=== PATIENT | female | born 1930 | race Caucasian/White ===

== ENCOUNTER 2018-04-24 09:45 | Inpatient (IN) ==
[2018-04-24] MEDS ORDERED: Naloxone 0.4 MG/ML INJ IVP PRN (18:45)
--- NOTE | 2018-04-24 20:53 | Internal Med History&Physical ---
Date of Encounter: 04/24/18 Time of Encounter: 11:00 Internal Medicine - H&P: HPI Chief complaint: Epigastric pain Admitted From: Home History of present illness: Patient is a 87-year-old female with past medical history significant for hypertension and hyperlipidemia who presents due to epigastric pain and nausea/vomiting. Patient is a very poor historian but daughter is present at the bedside who reports patient has had recent nausea and abdominal discomfort. She was brought into the [facility] for further evaluation. In the ER patient was noted to have elevated troponin of 0.14 and was therefore transferred to [facility] for ACS rule out. Past Med Surg Social Fam HX - Past Medical History Medical history: hyperlipidemia, hypertension Psychiatric history: no psych history - Past Surgical History Surgical History: hysterectomy, other Additional surgical history: REMOVAL GANGLION CYST - Social History Smoking Status: Never smoker Smokeless Tobacco Status: No Alcohol use: none Drug use: none - Additional Family History Additional family history: mom-CAD Internal Medicine - H&P: Meds Aspirin 325 mg PO DAILY 06/18/17 [History] Enalapril Maleate [Vasotec] 20 mg PO DAILY 06/18/17 [History] Metoprolol [Lopressor] 50 mg PO BID 06/18/17 [History] Multivit-Min/Iron/Folic/Lutein [Centrum Silver Women Tablet] 1 each PO DAILY 06/18/17 [History] Simvastatin [Zocor] 20 mg PO HS 06/18/17 [History] cloNIDine HCl [CloNIDine HCl] 2 tab PO DAILY 06/18/17 [History] 3 Allergy/AdvReac Type Severity Reaction Status Date / Time No Known Allergies Allergy Verified 04/24/18 07:25 All Systems PM: A 10-system review of systems was performed and is negative for pertinent findings except as documented above in the HPI. - Constitutional Vitals: Temp Pulse Resp BP Pulse Ox 98.7 F 60 18 110/57 92 04/24/18 20:09 04/24/18 20:09 04/24/18 20:09 04/24/18 20:09 04/24/18 20:09 General appearance: Present: A&O X 3 Exam: As above - Head Head exam: Present: normocephalic - Eye Eye exam: Present: normal appearance - ENT ENT exam: Present: mucous membranes moist - Respiratory Respiratory exam: Present: CTAB. Absent: accessory muscle use, rales, rhonchi, wheezes - Cardiovascular Cardiovascular exam: Present: RRR, +S1, +S2. Absent: diastolic murmur, gallop, rubs, systolic murmur - GI/Abdominal GI/Abdominal exam: Present: normal bowel sounds, soft, no peritoneal signs. Absent: distended, tenderness - Extremities Exam Extremities exam: Absent: pedal edema - Neurological Exam Neurological exam: Present: oriented X3 - Psychiatric Psychiatric exam: Present: normal mood - Skin Skin exam: Present: normal color Internal Med - H&P Results - Labs CBC & Chem 7: 04/25/18 03:46 04/25/18 03:46 Labs: Cardiac Enzymes 04/24/18 Range/Units 14:02 Troponin I 0.18 H* (< 0.04) ng/mL - Assessment and plan (1) Elevated troponin I level Current Visit: No Status: Acute Assessment and plan: Patient with elevated troponin of 0.14 and repeat 0.18 Echocardiogram pending Will trend serial troponins and monitor on telemetry (2) Epigastric pain Current Visit: No Status: Acute Assessment and plan: Patient presented of abdominal discomfort Abdominal CT without any acute findings Will continue to monitor (3) HTN (hypertension), benign Current Visit: Yes Status: Acute Assessment and plan: Continue home dose of metoprolol and lisinopril addition to clonidine - Time Spent With Patient Total time spent is greater than 50% in coordination of care (as documented) at patient's floor/unit and/or counseling patient:
--- NOTE | 2018-04-25 00:36 | Event Note ---
Date of Encounter: 04/24/18 Time of Encounter: 22:30 Alerted by patient's nurse Natalie that patient's troponin was now 0.14. Initial troponin was 0.18. Patient admitted for ACS rule out due to elevated troponin but also admitted with nausea, vomiting, and abdominal pain. History of HLD and HTN. Patient reporting slight pressure in chest but denies SOB. EKG shows sinus arrhythmia with minimal ST depression in lateral leads and borderline ST elevation in anterior leads. Prolonged QT interval. No cardiac history and [facility] medical records. Echocardiogram ordered by Dr. Lai. Cardiology consult ordered but not confirmed due to lateness of the evening. A.m. team to follow-up and confirm Cardiology consult for this patient. Nurse instructed to monitor patient closely overnight and alerted me immediately if any adverse changes.
[2018-04-25 04:22] LABS: Basophils % 0.2 %; Eosinophils % 0.2 %; Hematocrit 36.2 % (35.3-44.9); Hemoglobin 11.8 g/dL (11.5-15.4); Immature Granulocytes % 0.2 % (0-4); Lymphocytes # 1.1 K/mcL (0.6-4.6); Lymphocytes % 12.8 %; Mean Corpuscular HGB Conc 32.6 g/dL (31.6-35.5); Mean Corpuscular Hemoglobin 29.4 pg (28.0-33.3); Mean Corpuscular Volume 90.3 fL (83.0-100.0); Mean Platelet Volume 10.6 fL (9.4-12.4); Monocytes # 0.7 K/mcL (0.0-1.3); Monocytes % 7.9 %; Neutrophils # 6.6 K/mcL (1.6-8.9); Platelet Count 249 K/mcL (140-400); Red Blood Count 4.01 M/mcL (3.82-4.97); Red Cell Distribution Width 12.5 % (11.5-14.5); Segmented Neutrophils % 78.7 %
[2018-04-25 04:27] LABS: Calcium 9.3 mg/dL (8.6-10.3); Potassium 3.4 mEq/L (3.5-5.1)
[2018-04-25] MEDS: cloNIDine HCl 0.1 MG TABLET PO SCH (10:19)
[2018-04-25] MEDS: Aspirin 325 MG TABLET PO SCH (10:19)
[2018-04-25] MEDS: Lisinopril 20 MG TABLET PO SCH (10:19)
--- NOTE | 2018-04-25 12:41 | Internal Med Progress Note ---
Hospitalist Progress Note - Encounter Date of Encounter: 04/25/18 Time of Encounter: 12:39 - Subjective Interval History: Patient seen and examined at bedside. Patient reports that she continues to feel nauseous but overall feels slightly better than she did yesterday evening. She denies any vomiting since admission. She denies chest pain, shortness of breath. - Exam Vitals: Temp Pulse Resp BP Pulse Ox 98.4 F 58 16 137/67 92 04/25/18 12:35 04/25/18 12:35 04/25/18 12:35 04/25/18 12:35 04/25/18 12:35 Exam: Gen.: Alert and oriented 3, appears mildly uncomfortable Heart: Regular rate and rhythm, no murmurs, rubs, gallops Lungs: Clear to auscultation bilaterally, no rales, rhonchi, wheezes Abdomen: Soft, nontender, nondistended. Normoactive bowel sounds. - Assessment and Plan (1) Hypertensive urgency Current Visit: Yes Status: Acute Assessment and Plan: Blood pressure significantly elevated at 215 systolic on presentation. Likely cause of patient's symptoms. Blood pressure has been improving, down to 150s systolic. Home medication restarted. Continue to monitor closely. (2) Nausea and vomiting Current Visit: Yes Status: Acute Assessment and Plan: Patient has persistent nausea however it is generally improved. Added Phenergan for symptomatic relief. CT of the abdomen and pelvis on presentation showed no acute findings. Possibly related to significant hypertension as the patient had a systolic blood pressure greater than 215 on presentation. Appears to be improving as blood pressure improved. (3) Elevated troponin I level Current Visit: Yes Status: Acute Assessment and Plan: Troponin 0.18 on presentation, has trended down to 0.10. Chest pain-free. Likely demand ischemia in the setting of hypertension however patient was noted to have EKG changes with right bundle branch block that she did not have on presentation. Discussed with cardiology. Do not feel like this was ACS however they did recommend echocardiogram and I have asked them to see her in consultation. (4) HTN (hypertension), benign Current Visit: Yes Status: Acute DVT Prophylaxis: EPCDs - Time Spent with Patient Total time spent is greater than 50% in coordination of care (as documented) at patient's floor/unit and/or counseling patient: Internal Medicine: Result - Labs CBC & Chem 7: 04/25/18 03:46 04/25/18 03:46 Labs: Short CBC 04/25/18 Range/Units 03:46 WBC 8.4 (4.3-11.1) K/mcL Hgb 11.8 D (11.5-15.4) g/dL Hct 36.2 (35.3-44.9) % Plt Count 249 (140-400) K/mcL Neutrophils # 6.6 (1.6-8.9) K/mcL BMP 04/25/18 03:46 Sodium 137 Potassium 3.4 L Chloride 99 Carbon Dioxide 27 BUN 37 H Creatinine 1.15 Glucose 104 Calcium 9.3 Cardiac Enzymes 04/24/18 04/24/18 04/25/18 Range/Units 14:02 21:43 03:46 Troponin I 0.18 H* 0.14 H* 0.12 H* (< 0.04) ng/mL 04/25/18 Range/Units 11:57 Troponin I 0.10 H* (< 0.04) ng/mL Consult Discharge Plan - Plan Referrals: Celso Hopper, DO [Primary Care Provider] - (2) Nausea and vomiting Qualifiers: Vomiting type: unspecified Vomiting Intractability: non-intractable Qualif ied Code(s): R11.2 - Nausea with vomiting, unspecified
[2018-04-26] MEDS ORDERED: *HR* Morphine 2 MG/ML SYRINGE IVP PRN (02:04)
--- NOTE | 2018-04-26 02:47 | Event Note ---
Date of Encounter: 04/26/18 Time of Encounter: 00:14 Alerted by pts. nurse MOUNA oPnd that the pt. was not feeling well. Pt. was admitted for HTN crisis, N/V, and elevated troponin. BP was 196/84 on manual check. No PRN medications ordered. 10 mg hydralazine ordered once. Nurse instructed to monitor pts. BP Q15MIN x4 following administration. BP checks were 232/91, 212/68. Pt. was also requesting Phenergan for nausea. Several PVCs on tele. HR 74. EKG ordered which showed SR w/RBBB. Subsequent BPs were 208/67, 207/46, 195/68, and 199/69. 2 mg IVP morphine ordered at 02:05 with instructions to monitor pts. BP closely. Went to discuss pt. w/nurse at 02:40 and pts. BP was now 172/64. Instructed nurse to continue BP checks Q15MIN and alert me immediately of any adverse changes. HR 66. Pt. sleeping comfortably.
[2018-04-26] MEDS ORDERED: *HR* Promethazine 25 MG/ML VIAL IVP PRN (04:09)
[2018-04-26] MEDS ORDERED: Nitroglycerin 1 INCH/GM PACKET TP ONE (04:15)
[2018-04-26] MEDS: Ondansetron 4 MG/2 ML VIAL IVP PRN (04:41)
[2018-04-26 05:58] LABS: Basophils % 0.2 %; Eosinophils % 0.1 %; Hematocrit 37.1 % (35.3-44.9); Hemoglobin 11.9 g/dL (11.5-15.4); Immature Granulocytes % 0.1 % (0-4); Lymphocytes # 0.7 K/mcL (0.6-4.6); Lymphocytes % 8.6 %; Mean Corpuscular HGB Conc 32.1 g/dL (31.6-35.5); Mean Corpuscular Hemoglobin 28.9 pg (28.0-33.3); Mean Platelet Volume 10.4 fL (9.4-12.4); Monocytes # 0.5 K/mcL (0.0-1.3); Monocytes % 6.6 %; Neutrophils # 6.8 K/mcL (1.6-8.9); Platelet Count 240 K/mcL (140-400); Red Blood Count 4.12 M/mcL (3.82-4.97); Red Cell Distribution Width 12.4 % (11.5-14.5); Segmented Neutrophils % 84.4 %
[2018-04-26 06:19] LABS: BUN/Creatinine Ratio 41 (6-26); Blood Urea Nitrogen 28 mg/dL (8-23); Calcium 9.2 mg/dL (8.6-10.3); Carbon Dioxide 28 mEq/L (23-29); Chloride 101 mEq/L (98-107); Glucose 97 mg/dL (70-105); Magnesium 1.5 mg/dL (1.6-2.6); Osmolality,Calculated 291 (280-300); Potassium 3.6 mEq/L (3.5-5.1); Sodium 138 mEq/L (136-145); eGFR For Non-African Americans > 60 (> 60)
[2018-04-26] MEDS: Aspirin 325 MG TABLET PO SCH (08:30)
[2018-04-26] MEDS: Lisinopril 20 MG TABLET PO SCH (08:30)
[2018-04-26] MEDS: cloNIDine HCl 0.1 MG TABLET PO SCH (08:30)
--- NOTE | 2018-04-26 09:17 | Cardiology Consult Note ---
Date of Encounter: 04/26/18 Time of Encounter: 08:00 Assessment and Plan (1) Hypertension Current Visit: Yes Status: Chronic History of hypertension. At home she is on enalapril 20 mg daily, metoprolol 50 mg BID, and clonidine 0.2 mg daily. Since her admission her blood pressure has remained elevated. She has no chest pain. Her echo on 04/24/18 has EF of 60-65% with moderate concentric left ventricular hypertrophy and moderate left ventricular diastolic dysfunction with atypical septal motion with bundle branch block. -Hypertension likely due to once a day dosing of clonidine -Consider doing a BID dosing for clonidine -Right bundle branch block likely due to hypertension -Continue to manage blood pressure Qualifiers: Hypertension type: essential hypertension Qualified Code(s): I10 - Es sential (primary) hypertension (2) Epigastric pain Current Visit: No Status: Acute Midepigastric pain. No pain at other abdominal quadrants. History of GERD. Complained of sometimes food getting stuck in her through and per daughter she had an EGD [address] Whitehead which showed some narrowing of the esophagus. There is a barrium swallow study from 2016 which notes a small zenker's diverticulum with some esophageal dysmotility. May require further outpatient GI workup if her nausea persists. Recommendations by primary team. (3) Elevated troponin I level Current Visit: Yes Status: Acute Could be likely due to demand ischemia. She was having two day episodes of emesis with poor oral intake prior to the finding of elevated troponin. Her EKG does not show any ST changes but shows right bundle branch block likely secondary to elevated blood pressure. Echo shows preserved EF with moderate LV diastolic dysfunction and moderate concentric LV hypertrophy. Has remained chest pain free since admission. Continue to control blood pressure. At this time patient would like to maintain medical management. Discussion w patient/family: The assessment and plan as outlined above was discussed with the patient and/or family members who expressed understanding and agreement. All questions were answered. Thank you for involving us in the care of your patient. Please call with any questions. History of Present Illness Consult date: 04/26/18 Requesting physician: Pb Vallejo Consult reason: Elevated troponin Chief complaint: nausea History of present illness: Ms. Love is a 87 year old female with past medical history of hypertension and hyperlipidemia who presented due to epigastric pain, nausea and emesis. Her emesis resolved upon admission and had been ongoing for two days prior to admission. She noted previous history of narrowing of the esophagus in a past EGD 5 years ago and notes she limits certain foods due to the GERD related symptoms. At presentation her blood pressure was 119/62 and she had just taken her blood pressure medications without any oral intake. Since her admission her blood pressure has remained elevated. It is noted that she is on 0.2 mg of clonidine daily as her home dose and this may be causing reflex elevated blood pressure. This morning she is complaining of nausea, poor appetite and constipation. She denies fever, chills, shortness of breath or chest pain. Past Med Surg Social Fam HX - Past Medical History Medical history: hyperlipidemia, hypertension Psychiatric history: no psych history - Past Surgical History Surgical History: hysterectomy, other Additional surgical history: REMOVAL GANGLION CYST - Social History Smoking Status: Never smoker Smokeless Tobacco Status: No Alcohol use: none Drug use: none Medications and Allergies Aspirin 325 mg PO DAILY 06/18/17 [History] Enalapril Maleate [Vasotec] 20 mg PO DAILY 06/18/17 [History] Metoprolol [Lopressor] 50 mg PO BID 06/18/17 [History] Multivit-Min/Iron/Folic/Lutein [Centrum Silver Women Tablet] 1 each PO DAILY 06/18/17 [History] Simvastatin [Zocor] 20 mg PO HS 06/18/17 [History] Acetaminophen [Tylenol] 325 mg PO Q12H PRN 04/25/18 [History] cloNIDine HCl [Clonidine HCl] 0.2 mg PO DAILY 04/25/18 [History] Allergy/AdvReac Type Severity Reaction Status Date / Time No Known Allergies Allergy Verified 04/24/18 07:25 All Systems Review: The remainder of the systems were reviewed and are negative - Constitutional Constitutional: no chills, no fever(s), no weakness - Cardiovascular Cardiovascular: no chest pain at rest, no chest pain with exertion, no orthopnea, no palpitations - Respiratory Respiratory: no cough, no dyspnea, no hemoptysis, no wheezing - Gastrointestinal Gastrointestinal: abdominal pain (epigastric), constipation, no diarrhea, no dysphagia - Musculoskeletal Musculoskeletal: no back pain, no muscle weakness, no myalgias - Integumentary Integumentary: no erythema, no rash - Neurological Neurological: no focal weakness, no numbness, no syncope - Psychiatric Psychiatric: no anxiety, no depression Physical Examination Vital Signs, Last 4 Hours Temp Pulse Resp BP Pulse Ox 04/26/18 06:53 99.5 F 72 17 181/66 97 04/26/18 06:21 190/72 04/26/18 06:20 192/61 General: Conversant, No Apparent Distress HEENT: Atraumatic, Normocephaly, Mucus Membranes Moist Neck: No JVD, Normal carotid pulses Cardiac: Reg Rate and Rhythm, Normal S1 and S2, No Murmur Lungs: Normal Breath Sounds, No Wheeze, Rales, Rhonchi Neuro: Alert and responsive, No focal deficits noted Abdomen: Soft, Other (tenderness at midepigastric region ) Skin: No rashes noted on visualized skin Musculoskeletal: No Chest Wall Tenderness Extremities: No Clubbing, No Edema, Normal Pulses Results 04/26/18 05:20 04/26/18 05:20 Lab Results 04/25/18 04/26/18 04/26/18 11:57 05:20 05:20 WBC 8.1 Hgb 11.9 Hct 37.1 Plt Count 240 Sodium 138 Potassium 3.6 Chloride 101 Carbon Dioxide 28 BUN 28 H Creatinine 0.68 Glucose 97 Calcium 9.2 Magnesium 1.5 L Troponin I 0.10 H* Consult Discharge Plan - Plan Referrals: Celso Hopper DO [Primary Care Provider] -
--- NOTE | 2018-04-26 10:55 | Internal Med Progress Note ---
Hospitalist Progress Note - Encounter Date of Encounter: 04/26/18 Time of Encounter: 10:53 - Subjective Interval History: Patient seen and examined at bedside. Patient reports that her nausea is slightly better today. She denies vomiting. She also reports occasional GERD type symptoms. She states she had a "twinge" of chest pain this morning but no other episodes of chest pain. She denies shortness of breath, abdominal pain. - Exam Vitals: Temp Pulse Resp BP Pulse Ox 99.5 F 72 17 181/66 97 04/26/18 06:53 04/26/18 06:53 04/26/18 06:53 04/26/18 06:53 04/26/18 06:53 Exam: Gen.: Alert and oriented 3, appears mildly uncomfortable Heart: Regular rate and rhythm, 2/6 systolic murmur noted, rubs, gallops Lungs: Clear to auscultation bilaterally, no rales, rhonchi, wheezes Abdomen: Soft, nontender, nondistended. Normoactive bowel sounds. - Assessment and Plan (1) Hypertensive urgency Current Visit: Yes Status: Acute Assessment and Plan: Blood pressure much improved today, still has mild nausea but better. Continue current medications. (2) Nausea and vomiting Current Visit: Yes Status: Acute Assessment and Plan: Improved. May be component of GERD symptoms, we will start omeprazole 20 mg daily. (3) Elevated troponin I level Current Visit: Yes Status: Acute Assessment and Plan: Troponins continued to trend down. Chest pain-free. Echocardiogram reviewed and shows normal EF with moderate diastolic dysfunction. No valvular dysfunction. Likely demand ischemia. Appreciate cardiology recommendations. (4) HTN (hypertension), benign Current Visit: Yes Status: Acute DVT Prophylaxis: EPCDs - Time Spent with Patient Total time spent is greater than 50% in coordination of care (as documented) at patient's floor/unit and/or counseling patient: Internal Medicine: Result - Labs CBC & Chem 7: 04/26/18 05:20 04/26/18 05:20 Labs: Short CBC 04/26/18 Range/Units 05:20 WBC 8.1 (4.3-11.1) K/mcL Hgb 11.9 (11.5-15.4) g/dL Hct 37.1 (35.3-44.9) % Plt Count 240 (140-400) K/mcL Neutrophils # 6.8 (1.6-8.9) K/mcL BMP 04/26/18 05:20 Sodium 138 Potassium 3.6 Chloride 101 Carbon Dioxide 28 BUN 28 H Creatinine 0.68 Glucose 97 Calcium 9.2 Cardiac Enzymes 04/25/18 Range/Units 11:57 Troponin I 0.10 H* (< 0.04) ng/mL - Impressions Impressions Echocardiogram 04/24/18 14:59 Impressions: LVEF 60-65%. Moderate concentric left ventricular hypertrophy. Basal sigmoid septum. Moderate left ventricular diastolic dysfunction. Atypical septal motion consistent with bundle branch block. Normal right ventricular structure and function. Mildly dilated left atrium. Mildly sclerotic aortic valve leaflets. Unable to estimate RVSP due to lack of TR jet. Left Ventricular Wall Motion: Rest Echo Findings All wall segments showed normal motion. Findings: Study Quality * Technically adequate exam. ECG Findings * Normal sinus rhythm. * Sinus rhythm with BBB. Left Ventricle * LVEF 60-65%. * Moderate concentric left ventricular hypertrophy. * Basal sigmoid septum. * Moderate left ventricular diastolic dysfunction. * Atypical septal motion consistent with bundle branch block. Right Ventricle * Normal right ventricular structure and function. Left Atrium * Mildly dilated left atrium. Right Atrium * Normal right atrial size. Interatrial Septum * Lipomatous interatrial septum. Aortic Valve * Trileaflet aortic valve. * No aortic regurgitation. * No aortic stenosis. * Mildly sclerotic aortic valve leaflets. Mitral Valve * No mitral stenosis. * Normal mitral valve structure. * No mitral regurgitation. Tricuspid Valve * Trace tricuspid regurgitation. * No tricuspid stenosis. * Unable to estimate RVSP due to lack of TR jet. * Normal tricuspid valve structure. Pulmonic Valve * Pulmonic valve is not well visualized. Aorta * Normally sized aortic root. Pericardium * The pericardium appears normal. IVC * The IVC is not well evaluated. Pulmonary Artery * Pulmonary artery not well visualized. Consult Discharge Plan - Plan Referrals: Celso Hopper, DO [Primary Care Provider] - (2) Nausea and vomiting Qualifiers: Vomiting type: unspecified Vomiting Intractability: non-intractable Qualified Code(s): R11.2 - Nausea with vomiting, unspecified
--- NOTE | 2018-04-26 18:03 | Electrocardiograph Report ---
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
[2018-04-26] MEDS ORDERED: Nitroglycerin 0.4 MG TAB.SUBL SL ONE (23:33)
--- NOTE | 2018-04-27 02:03 | Event Note ---
Date of Encounter: 04/27/18 Time of Encounter: 00:18 Alerted by patient's nurse MOUNA Pond earlier that the pt. was becoming hypertensive again as she did last night. In reviewing pts. BP readings throughout the day, the 0.5 nitro paste seemed to help control her BP. Pts. nurse stated that he removed the nitro paste when he started his shift this evening. When I was alerted tonight, a one-time dose of SL nitro was ordered d/t pts. nausea being resolved. BP prior to nitro was 187/71. BPs after SL nitro were: 161/65, 188/626, 157/64, 168/66, 170/68, and 171/69. Nurse instructed to continue checking BP Q15MIN to assess for improvement. Will continue to monitor pt. very closely and order nitro paste for tonight again if BP continues to be poorly controlled. Nurse instructed to alert me immediately of any adverse changes.
[2018-04-27] MEDS ORDERED: cloNIDine HCl 0.1 MG TABLET PO SCH (04:15)
[2018-04-27 06:09] LABS: BUN/Creatinine Ratio 41 (6-26); Blood Urea Nitrogen 32 mg/dL (8-23); Calcium 9.4 mg/dL (8.6-10.3); Carbon Dioxide 26 mEq/L (23-29); Chloride 100 mEq/L (98-107); Glucose 113 mg/dL (70-105); Magnesium 1.7 mg/dL (1.6-2.6); Osmolality,Calculated 294 (280-300); Potassium 3.8 mEq/L (3.5-5.1); Sodium 138 mEq/L (136-145); eGFR For Non-African Americans > 60 (> 60)
[2018-04-27] MEDS: Lisinopril 20 MG TABLET PO SCH (08:37)
[2018-04-27] MEDS: Aspirin 325 MG TABLET PO SCH (08:38)
--- NOTE | 2018-04-27 11:43 | Internal Med Progress Note ---
Hospitalist Progress Note - Encounter Date of Encounter: 04/27/18 Time of Encounter: 11:31 - Subjective Interval History: Patient was admitted for uncontrolled hypertension. Patient state that she was doing well with clonidine 0.2 mg twice a day, but her doctor changed to 0.2 once daily. Since then her blood pressure has been running up and down. Her daughter who is a nurse verified that she was taking clonidine 0.2 mg twice a day, but her primary care physician keep changing back to 0.2 once a day in the morning. Discussed with her daughter and the patient will put her back 0.2 mg twice daily and that she will need a prescription for a month's supply for 0.2 mg tab twice daily and then his 3 month supply for mail in pharmacy. Patient also reports that she has low-grade fever temperature 100.2, fatigue, lack of energy for few days, she has vesical lesion to the left waist, likley zoster, will start Valtrex. Watch ON, she will be discharged tomorrow morning if her pressure is well controlled, discussed with her daughter who agrees. - Exam Vitals: Temp Pulse Resp BP Pulse Ox 100.2 F H 68 19 126/51 96 04/27/18 07:36 04/27/18 07:36 04/27/18 07:36 04/27/18 07:36 04/27/18 07:36 Exam: CONSTITUTIONAL: patient appears as an age appropriate female in no acute distress. EYES Clear sclerae, bilateral pupils are equal, reactive to light. EMOI. RESPIRATORY: No accessory muscle use, bilateral clear to auscultation, no wheezing, no crackles/rales. CARDIOVASCULAR: Regular heart rate, normal S1 and S2, no murmurs GASTROINTESTINAL: bowel sounds present, soft, no tenderness. MUSCULOSKELETAL: Joints in normal range of motion, no clubbing, no edema, no cyanosis. Bilateral peripheral pulses 2+. NEUROLOGIC: CN II to XII are grossly intact, no focal neurological deficit. DVT Prophylaxis: Lovenox - Summary of Assessment and Plan Summary of Assessment and Plan: (1) Hypertensive urgency Current Visit: Yes Status: Acute Assessment and Plan: Blood pressure much improved with clonidine 0.2 mg a 4 am, I discussed with her daughter who is a nurse, patient was on clinidone 0.2 mg BID for many years, now, the new PCP changed to daily, since then BP has been Up and Down. Continue current medications. Patient will need 1 month supply of clinidone , then 3 month for mail in pharmacy (2) Nausea and vomiting, resolved Current Visit: Yes Status: Acute Assessment and Plan: Improved. May be component of GERD symptoms, continue omeprazole 20 mg daily. (3) Elevated troponin I level, likley demanding ischemia Current Visit: Yes Status: Acute Assessment and Plan: Troponins continued to trend down. Chest pain-free. Echocardiogram reviewed and shows normal EF with moderate diastolic dysfunction. No valvular dysfunction. Likely demand ischemia. Appreciate cardiology recommendations. Continue medical treatment patient declined left heart cath at this point (4) HTN (hypertension), benign Current Visit: Yes Status: Acute DVT Prophylaxis: (5) left wait zoster infection with low grade fever, will start Valtrex 1 gm TID (6) Obesity with BMI 33 disposition Home tomorrow if BP improved, fever resolved - Time Spent with Patient Total time spent is greater than 50% in coordination of care (as documented) at patient's floor/unit and/or counseling patient: 25 - 35 minutes Internal Medicine: Result - Labs CBC & Chem 7: 04/26/18 05:20 04/27/18 04:49 Labs: BMP 04/27/18 04:49 Sodium 138 Potassium 3.8 Chloride 100 Carbon Dioxide 26 BUN 32 H Creatinine 0.79 Glucose 113 H Calcium 9.4 Consult Discharge Plan - Plan Referrals: Celso Hopper DO [Primary Care Provider] - (working on Placement)
[2018-04-27] MEDS: valACYclovir 500 MG TABLET PO SCH ×2 (12:35→21:43)
[2018-04-27] MEDS: cloNIDine HCl 0.1 MG TABLET PO SCH (17:26)
--- NOTE | 2018-04-27 17:27 | Electrocardiograph Report ---
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
[2018-04-28 05:26] LABS: Basophils % 0.5 %; Eosinophils % 0.5 %; Hematocrit 36.3 % (35.3-44.9); Hemoglobin 11.8 g/dL (11.5-15.4); Lymphocytes # 0.7 K/mcL (0.6-4.6); Lymphocytes % 12.4 %; Mean Corpuscular HGB Conc 32.5 g/dL (31.6-35.5); Mean Corpuscular Hemoglobin 29.6 pg (28.0-33.3); Mean Corpuscular Volume 91.2 fL (83.0-100.0); Mean Platelet Volume 10.7 fL (9.4-12.4); Monocytes # 0.6 K/mcL (0.0-1.3); Monocytes % 10.2 %; Neutrophils # 4.5 K/mcL (1.6-8.9); Platelet Count 194 K/mcL (140-400); Red Blood Count 3.98 M/mcL (3.82-4.97); Red Cell Distribution Width 12.4 % (11.5-14.5); Segmented Neutrophils % 76.4 %
[2018-04-28 05:49] LABS: BUN/Creatinine Ratio 37 (6-26); Blood Urea Nitrogen 26 mg/dL (8-23); Calcium 9.2 mg/dL (8.6-10.3); Carbon Dioxide 29 mEq/L (23-29); Chloride 100 mEq/L (98-107); Glucose 109 mg/dL (70-105); Osmolality,Calculated 289 (280-300); Potassium 3.6 mEq/L (3.5-5.1); Sodium 137 mEq/L (136-145); eGFR For Non-African Americans > 60 (> 60)
[2018-04-28] MEDS ORDERED: *HR* Enoxaparin 40 MG/0.4 ML SYRINGE SQ SCH (06:00)
[2018-04-28] MEDS: cloNIDine HCl 0.1 MG TABLET PO SCH ×2 (06:23→16:38)
[2018-04-28] MEDS: Ondansetron 4 MG/2 ML VIAL IVP PRN ×2 (06:23→14:17)
[2018-04-28] MEDS: valACYclovir 500 MG TABLET PO SCH ×2 (07:51→13:41)
[2018-04-28] MEDS: Lisinopril 20 MG TABLET PO SCH (07:51)
[2018-04-28] MEDS: Aspirin 325 MG TABLET PO SCH (07:51)
--- NOTE | 2018-04-28 12:09 | Discharge Summary ---
- NOTES TO OUTPATIENT PROVIDER Notes to Outpatient Provider: Ensure Zoster rash on L flank is healing, and that HTN controlled on current meds Date of Encounter: 04/28/18 Time of Encounter: 14:50 - Discharge Diagnosis (1) Hypertensive urgency Priority: Primary Status: Acute Hospital course: Dear Doctors, I recently had the pleasure of caring for Mrs Love during her admission to [facility]. Ms. Love is an 87 F w hx HTN, HLD, who presented at time of admission with nausea and epigastric pain. She was found to have elevated troponin in setting of elevated blood pressure. Diagnosed with hypertensive urgency and admitted for further management. In the hospital, Cardiology was consulted who, after discussion with patient who declined LHC, and with TTE showing preserved EF, recommended medical management empirically for NSTEMI with ASA and BB as well as improved control of HTN. Pt formerly controlled on clonidine 0.2 po bid and this was resumed with good effect. Of note, pt began to complain of L flank pain, and observed to have vesicular rash in dermatomal distribution c/w shingles for which she was started on Valtrex. Follow up: PCP 1 week Tests pending: none Pertinent tests/consults: TTE showing preserved EF, Cardio consultation recommending med management Med changes: - new clonidine 0.2 po bid - valtrex 1g po tid, last dose 05/03 - new KCl 10 meq daily Mental status: fully oriented Code status: full code Time spent on D/C: 35 minutes Let me know if you have any questions regarding this patient's hospital stay. Jeremias Richardson MD - Time Spent with Patient Total time spent providing and/or coordinating discharge services: Greater than 30 minutes - Discharge Medications Prescriptions: cloNIDine HCl [Clonidine HCl] 0.2 mg PO BID #60 tablet Ondansetron ODT [Zofran ODT] 4 mg PO Q6H PRN #30 tab.rapdis PRN Reason: Nausea Potassium Chloride 10 meq PO DAILY #30 tab.er.prt valACYclovir [Valtrex] 1,000 mg PO TID 6 Days #36 tablet Home Medications: Aspirin 325 mg PO DAILY 06/18/17 [History] Enalapril Maleate [Vasotec] 20 mg PO DAILY 06/18/17 [History] Metoprolol [Lopressor] 50 mg PO BID 06/18/17 [History] Multivit-Min/Iron/Folic/Lutein [Centrum Silver Women Tablet] 1 each PO DAILY 06/18/17 [History] Simvastatin [Zocor] 20 mg PO HS 06/18/17 [History] Acetaminophen [Tylenol] 325 mg PO Q12H PRN 04/25/18 [History] Ondansetron ODT [Zofran ODT] 4 mg PO Q6H PRN #30 tab.rapdis 04/28/18 [Rx] Potassium Chloride 10 meq PO DAILY #30 tab.er.prt 04/28/18 [Rx] cloNIDine HCl [Clonidine HCl] 0.2 mg PO BID #60 tablet 04/28/18 [Rx] valACYclovir [Valtrex] 1,000 mg PO TID 6 Days #36 tablet 04/28/18 [Rx] Allergies/Adverse Reactions: Allergy/AdvReac Type Severity Reaction Status Date / Time No Known Allergies Allergy Verified 04/24/18 07:25 Date of admission: 04/27/18 08:22 Primary care physician: Celso Hopper DO Consults: 04/24/18 11:28 Consult to Pastoral Services [CONS] Routine Comment: 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 EYES Clear sclerae, bilateral pupils are equal and reactive. EMOI. RESPIRATORY: No accessory muscle use, bilateral clear to auscultation, no wheezing, no crackles/rales. CARDIOVASCULAR: Regular heart rate, normal S1 and S2, no murmurs GASTROINTESTINAL: bowel sounds present, soft, no tenderness. MUSCULOSKELETAL: Joints in normal range of motion, no clubbing, no edema, no cyanosis. Bilateral peripheral pulses 2+. NEUROLOGIC: CN II to XII are grossly intact, no focal neurological deficit. - Patient Status Disposition: Home, Self-Care Condition: Fair Functional capacity at discharge: independent ambulation Overall status at discharge: patient is progressing back to baseline - Discharge Instructions Instructions: Valacyclovir (By mouth), Herpes Zoster (GEN), Hypertension (GEN) Follow Up With: Celso Hopper DO [Primary Care Provider] - 05/11/18 10:15 am (Please follow up as schedule with Kiley Will) - Diet and Activity Activity: increase activity as tolerated Diet: advance to your usual diet
[2018-04-28 16:12] VITALS: BP 195/84
[2018-04-28] MEDS ORDERED: Acetaminophen 325 MG TABLET PO PRN (16:31)
== END 2018-04-28 18:09 | disposition home or self-care (01) | DRG 305 ==
LOC: 2ANU → SUATTDRO 10:57 → 2ANU 11:01 → SUATTDRO 04-27 08:22
PROVIDERS: ADMIT Hospitalist; ATTEND Internal Medicine